=== PATIENT | male | born 2000 | race Caucasian/White ===

== ENCOUNTER 2025-05-03 09:54 | Emergency (ER) | payer OTHER ==
[~2025-05-03] VITALS: Ht 177.8 cm; Wt 69.5 kg
[2025-05-03] MEDS: ACETAMINOPHEN 500 MG TAB PO ONE (12:38)
[2025-05-03] MEDS: KETOROLAC 60 MG/2 ML VIAL IM ONE (14:55)
[2025-05-03 15:11] VITALS: BP 114/66; TEMP 97.1; O2SAT 98
== END 2025-05-03 15:13 | disposition home or self-care (01) ==
LOC: EDSEX 09:54 → M ED 09:54
DX: S80.01XA Contusion of right knee, initial encounter (principal); S00.81XA Abrasion of other part of head, initial encounter; S70.12XA Contusion of left thigh, initial encounter; S83.91XA Sprain of unspecified site of right knee, initial encounter; S80.12XA Contusion of left lower leg, initial encounter; S80.11XA Contusion of right lower leg, initial encounter; S06.0XAA Concussion with loss of consciousness status unknown, initial encounter; V29.99XA Rider (driver) (passenger) of other motorcycle injured in unspecified traffic accident, initial encounter; Y92.9 Unspecified place or not applicable; Y93.9 Activity, unspecified; Y99.9 Unspecified external cause status
CPT/HCPCS: 70450; 70486; 72125; 72128; 72131; 72192; 73552; 73564; 73590; 96372; 99284; J1885

== ENCOUNTER 2025-07-27 09:31 | Emergency (ER) | payer OTHER ==
[~2025-07-27] VITALS: Ht 177.8 cm; Wt 79.5 kg
[2025-07-27] MEDS ORDERED: ACET-683 PO (09:56)
[2025-07-27] MEDS: ONDANSETRON 4MG ORAL DISINTEGRATING TAB PO ONE (10:40)
[2025-07-27] MEDS: ACETAMINOPHEN 325 MG TAB PO ONE (10:41)
[2025-07-27] MEDS ORDERED: ONDA-282 PO (11:15)
[2025-07-27 11:19] VITALS: BP 111/56; TEMP 97.4; O2SAT 98
== END 2025-07-27 11:21 | disposition home or self-care (01) ==
LOC: M ED 09:31
DX: R53.1 Weakness (principal); B34.9 Viral infection, unspecified

== ENCOUNTER 2025-09-08 02:22 | Emergency (ER) | payer OTHER ==
[~2025-09-08] VITALS: Ht 177.8 cm; Wt 79.5 kg
[~2025-09-08 02:22] MED LIST: ACET-683 PO; ONDA-282 PO
[2025-09-08 03:08] LABS: BASO # 0.1 10^3/uL (0.0-0.2); BASO % 0.6 % (0.0-1.0); EOS # 0.0 10^3/uL (0.0-0.5); EOS % 0.4 % (0.0-3.0); LYMPH # 0.8 10^3/uL (1.5-5.0); LYMPH % 7.2 % (24.0-44.0); MONO # 1.1 10^3/uL (0.0-0.8); MONO % 9.9 % (2.0-8.0); NEUTROPHILS # 8.8 10^3/uL (1.5-8.5); NEUTROPHILS % 81.5 % (36.0-66.0); PLATELET COUNT, AUTOMATED 256 10^3/uL (150-450)
[2025-09-08 03:32] LABS: CPK CREATINE PHOSPHOKINASE 79 U/L (46-171)
[2025-09-08 03:33] LABS: CALCIUM LEVEL 8.7 MG/DL (8.5-10.1); CARBON DIOXIDE LEVEL 25 MMOL/L (20-31); CHLORIDE LEVEL 103 MMOL/L (98-107); CK-MB VALUE MASS < 1.0 NG/ML (<3.6); CREATININE FOR GFR 0.98 MG/DL (0.70-1.30); GLOMERULAR FILTRATION RATE > 90.0 (>60); POTASSIUM SERUM 4.0 MMOL/L (3.5-5.1); SODIUM LEVEL 138 MMOL/L (136-145)
[2025-09-08] MEDS: ACETAMINOPHEN 500 MG TAB PO ONE (03:38)
[2025-09-08] MEDS ORDERED: BENZ200C70 PO (05:45)
[2025-09-08] MEDS: BENZONATATE 100 MG CAPSULE PO ONE (06:17)
[2025-09-08] MEDS: NS (Normal Saline) 0.9% 1,000 ML IV ONE (06:17)
[2025-09-08] MEDS: KETOROLAC 30 MG/ML 1 ML VIAL IV ONE (06:18)
[2025-09-08] MEDS: MAG SULF 1GM/100ML (MAG RUN) 1 GM in IV 1 EA IV ONE (06:18)
[2025-09-08 08:34] VITALS: BP 116/56; TEMP 99.6; O2SAT 99
== END 2025-09-08 08:37 | disposition home or self-care (01) ==
LOC: M ED 02:22
DX: J09.X2 Influenza due to identified novel influenza A virus with other respiratory manifestations (principal); F17.290 Nicotine dependence, other tobacco product, uncomplicated
CPT/HCPCS: 71045; 80048; 82550; 82553; 83605; 84484; 85025; 87486; 87581; 87633; 87798; 93005; 93041; 94760; 96374; 96375; 99285; J1885; J2765; J3475